=== PATIENT | female | born 1985 | race Caucasian/White ===

== ENCOUNTER 2018-07-29 15:06 | Inpatient (IN) ==
[2018-07-29] MEDS ORDERED: NICOTINE GUM BUCCAL PRN (18:21)
[2018-07-29] MEDS ORDERED: DESYREL PO PRN (18:21)
[2018-07-29] MEDS ORDERED: IMODIUM PO PRN ×2 (18:21)
[2018-07-29] MEDS ORDERED: ZOFRAN IV PRN (18:21)
[2018-07-29] MEDS ORDERED: D5W 1,000 ML IV PRN (18:21)
[2018-07-29] MEDS ORDERED: ZOFRAN ODT PO PRN (18:21)
[2018-07-29] MEDS ORDERED: SEROQUEL PO PRN (18:21)
[2018-07-29] MEDS ORDERED: PHENOBARBITAL IV PRN (18:21)
[2018-07-29] MEDS ORDERED: MOTRIN PO PRN (18:21)
[2018-07-29] MEDS ORDERED: DULCOLAX PR PRN (18:21)
[2018-07-29] MEDS ORDERED: TUBERSOL ID ONE (18:21)
[2018-07-29] MEDS ORDERED: MAALOX PLUS LIQUID PO PRN (18:21)
[2018-07-29] MEDS ORDERED: SENOKOT PO PRN (18:21)
[2018-07-29] MEDS ORDERED: ZOFRAN IM PRN (18:21)
[2018-07-29 18:31] LABS: URINE SOURCE CLEAN CATCH
[2018-07-29 18:40] LABS: BILIRUBIN URINE NEGATIVE (NEGATIVE); BLOOD URINE NEGATIVE (NEGATIVE); CLARITY CLEAR (CLEAR); COLOR YELLOW; GLUCOSE URINE NEGATIVE (NEGATIVE); KETONE URINE TRACE mg/dL (NEGATIVE); SP GRAVITY URINE 1.025
[2018-07-29 18:40] LABS: HEMATOCRIT 38.5 % (37.0-47.0); HEMOGLOBIN 13.6 g/dL (12.0-16.0); MCH 30.4 PG (27-31); MCHC 35.3 g/dL (33-37); MCV 85.9 FL (81-99); MPV 10.1 FL (7.4-10.4); RBC 4.48 XMIL (4.2-5.4); RDW 12.5 % (11.5-14.5); WBC 10.44 X1000 (4.8-10.8)
[2018-07-29 18:41] LABS: LEUKOCYTES URINE TRACE (NEGATIVE); NITRITE URINE NEGATIVE (NEGATIVE); PROTEIN URINE TRACE mg/dL (NEGATIVE); UROBILINOGEN URINE NORMAL
[2018-07-29 18:44] LABS: URINE BACTERIA 1+ /HFP; URINE EPITHELIAL CELLS <10 /HPF (<10); URINE WBC <10 /HPF (<10)
[2018-07-29 18:45] LABS: URINE CAST NONE SEEN /LPF; URINE CRYSTAL URIC ACID PRESENT /HPF; URINE YEAST NONE SEEN /HPF
[2018-07-29 18:45] LABS: UR AMPHETAMINES QUAL PRESUMPTIVE POSITIVE (NONE DETECT); UR CANNABINOIDS QUAL PRESUMPTIVE POSITIVE (NONE DETECT); UR METHAMPHETAMINE QUAL PRESUMPTIVE POSITIVE (NONE DETECT); UR OPIATES QUAL PRESUMPTIVE POSITIVE (NONE DETECT)
[2018-07-29 18:46] LABS: UR BARBITUATES QUAL NONE DETECTED (NONE DETECT); UR BENZODIAZEPIN QUAL NONE DETECTED (NONE DETECT); UR COCAINE QUAL NONE DETECTED (NONE DETECT); UR METHADONE QUAL NONE DETECTED (NONE DETECT); UR OXYCODONE QUAL NONE DETECTED (NONE DETECT); UR PCP QUAL NONE DETECTED (NONE DETECT); UR PROPOXYPHENE QUAL NONE DETECTED (NONE DETECT); UR TCA QUAL NONE DETECTED (NONE DETECT)
[2018-07-29 18:54] LABS: PROTIME 13.7 Seconds (11.0-16.0)
[2018-07-29 19:09] LABS: AGAP 13; ALBUMIN 4.6 g/dL (3.5-5.0); ALKALINE PHOSPHATASE 72 U/L (32-104); AMYLASE 27 U/L (20-200); BUN 18 mg/dL (8-22); CALCIUM 9.2 mg/dL (8.8-10.2); CHLORIDE 102 mmol/L (98-107); COSMO 279; CREATININE 0.6 mg/dL (0.5-0.9); ESTIMATED GFR > 60; GLUCOSE 88 mg/dL (70-104); GOT 68 U/L (10-30); GPT 58 U/L (10-36); LIPASE 15 U/L (13-60); POTASSIUM 3.2 mmol/L (3.5-5.1); SODIUM 139 mmol/L (136-145); TCO2 25 mmol/L (25-35); TOTAL PROTEIN 7.6 g/dL (6.3-8.3)
[2018-07-29] MEDS ORDERED: ATARAX PO PRN (19:27)
[2018-07-29] MEDS ORDERED: BENTYL PO PRN (19:27)
[2018-07-29] MEDS ORDERED: SALINE LOCK IV FLUID XX ONE (19:27)
[2018-07-29] MEDS: LIBRIUM PO SCH (19:56)
[2018-07-29] MEDS: ROBAXIN PO PRN (19:56)
[2018-07-29] MEDS ORDERED: M.V.I.-12 10 ML, FOLIC ACID 1 MG, MAGNESIUM SULFATE 1 GM, THIAMINE 100 MG in NS 1,000 ML IV ONE (20:00)
[2018-07-29] MEDS: NICODERM PATCH TD PRN (20:17)
[2018-07-30] MEDS: LIBRIUM PO SCH ×4 (01:39→20:32)
[2018-07-30] MEDS: PROTONIX PO SCH (06:47)
[2018-07-30] MEDS: VITAMIN B-1 PO SCH (08:15)
[2018-07-30] MEDS: THERA M PLUS PO SCH (08:15)
[2018-07-30] MEDS: FOLIC ACID PO SCH (08:15)
--- NOTE | 2018-07-30 12:45 | Diag Imaging Result Doc PS360 ---
ELBOW COMPLETE LEFT - 07/30/2018 INDICATION: fall TECHNIQUE: Three views COMPARISON: None FINDINGS: Bones are intact and normally aligned. Joint spaces and soft tissues are clear. IMPRESSION: Negative exam. Electronically signed by Av Blackman 07/30/2018 12:43 PM
--- NOTE | 2018-07-30 12:46 | Diag Imaging Result Doc PS360 ---
KNEE 3 VIEWS RIGHT - 07/30/2018 INDICATION: fall TECHNIQUE: Three views COMPARISON: None FINDINGS: There is mild degenerative spurring of all three joint compartment of the knee. No fracture or dislocation. No joint effusion. IMPRESSION: Mild osteoarthritis but no acute injury. Electronically signed by Av Blackman 07/30/2018 12:44 PM
[2018-07-30] MEDS: ROBAXIN PO PRN (13:58)
[2018-07-30] MEDS: TYLENOL PO PRN ×2 (13:58→20:37)
[2018-07-31] MEDS: LIBRIUM PO SCH ×2 (01:27→07:51)
[2018-07-31] MEDS: PROTONIX PO SCH (06:49)
[2018-07-31 07:37] VITALS: BP 118/75
[2018-07-31] MEDS: FOLIC ACID PO SCH (07:50)
[2018-07-31] MEDS: NICODERM PATCH TD PRN (07:51)
[2018-07-31] MEDS: VITAMIN B-1 PO SCH (07:51)
[2018-07-31] MEDS: THERA M PLUS PO SCH (07:51)
--- NOTE | 2018-07-31 09:05 | PROGRESS NOTE ---
DATE: 07/31/2018 SUBJECTIVE: Patient notes that she is feeling a little bit better. Denies any fevers or chills. OBJECTIVE: Vital signs: Reviewed and stable. General: She is awake, alert. She is in no current respiratory distress. HEENT: Normocephalic. Neck: Supple. CV: Regular rate. Chest: Clear. Abdomen: Soft. Extremities: Moves all extremities. ASSESSMENT: 1. Nausea and vomiting. 2. Abdominal pain. 3. Myalgias. 4. Paresthesias. 5. Paroxysmal sweating. 6. Substance abuse, withdrawal and stabilization. PLAN: Continue to wean. Continue counseling. Further orders [*]. cc: Jong Troy MD
[2018-07-31] MEDS ORDERED: LIBRIUM PO SCH (13:00)
--- NOTE | 2018-07-31 23:05 | HISTORY AND PHYSICAL ---
CHIEF COMPLAINT: Nausea, vomiting. HISTORY OF PRESENT ILLNESS: Patient is a 32-year-old female who presented [facility] secondary to nausea, vomiting, abdominal pain, myalgias, and paresthesias. SOCIAL HISTORY: Patient is single. She is unemployed. Lives at home in [place]. PAST MEDICAL HISTORY: Bipolar, ADHD, chronic anxiety, depression, frequent urinary tract infections, history of blackouts that are substance abuse related, history of hypertension although not on current medications. MEDICATIONS: None. ALLERGIES: No known drug allergies. REVIEW OF SYSTEMS: CINA score is 21 secondary to nausea, vomiting, abdominal pain crampy at times, diarrhea. No hematochezia, melena, hematemesis. Frequent hot and cold temperature changes, frequent cold chills, frequent episodes of sweating, skin crawling, runny nose, watery eyes, tremors. Denies any chest pain, palpitations. Denies any fevers. Denies dysuria, urinary frequency, urgency, hesitancy, polyuria or polydipsia. Denies skin rashes, weight loss or weight gain. SUBSTANCE ABUSE HISTORY: The patient has created legal, social, financial and work problems due to continued substance abuse. [facility] in [facility] and [facility] in 2016. She has been in [facility], [place], and [place]. She has been to [facility] and a recovery center in [place] call [facility]. Unfortunately, she has not remained sober after any of these steps. The patient started drinking at 12, currently drinks a 5th every 4 or 5 days. Started marijuana, smokes daily, at age 12. Started depressants at age 15, currently takes 1 to 2 Xanax a day. Currently, she is taking opiates every day and started at age 18. FAMILY HISTORY: Noncontributory. PHYSICAL EXAMINATION: VITAL SIGNS: Reviewed. GENERAL: Patient is awake, alert. She is currently in no respiratory distress. HEENT: Normocephalic, atraumatic. SRIKANTH. NECK: Supple. No JVD. CARDIOVASCULAR: Regular rate. No murmurs. CHEST: Clear and nonlabored. ABDOMEN: Soft, nondistended, nontender. EXTREMITIES: Moves all extremities. NEUROLOGIC: No changes. ASSESSMENT: 1. Nausea, vomiting. 2. Abdominal pain. 3. Myalgias. 4. Paresthesias. 5. Paroxysmal sweating. 6. Opiate abuse, withdrawal and stabilization. 7. Dysuria. PLAN: We will admit patient to the hospital, place her on Librium taper. Continue to follow. Continue counseling. Further orders as needed. cc: Jong Troy MD
--- NOTE | 2018-08-01 05:20 | DISCHARGE SUMMARY ---
ADMISSION DATE: 07/29/2018 DISCHARGE DATE: 07/31/2018 DISCHARGE DIAGNOSES: 1. Nausea, vomiting. 2. Abdominal pain. 3. Myalgias. 4. Paresthesias. 5. Paroxysmal sweating. 6. Polysubstance use and abuse. 7. Bipolar which is still somewhat problematic. CONSULTATIONS: None. PROCEDURES: None. BRIEF HOSPITAL COURSE: The patient is a 32-year-old female who presented to the hospital with polysubstance abuse and withdrawal. We placed her on Librium taper, began counseling, continued to taper throughout the hospital stay. On discharge, she is in no further distress. Her withdrawal symptoms have resolved. She is awake, alert, and oriented. DISPOSITION: Patient will be discharged home. Discussed with her that she needs outpatient life counseling as well as drug counseling. She needs to follow up outpatient with treatment facility of choice. Greater than 30 minutes was spent in total care. She will be discharged with 3 Librium tablets to be taken twice a day tomorrow and then once a day afterwards. cc: Jong Troy MD
== END 2018-07-31 11:10 | disposition home or self-care (01) | DRG 897 ==
LOC: P.DIRADM 16:17 → P.MEDSURG 16:32
PROVIDERS: ADMIT Family Medicine; ATTEND Family Medicine
CPT/HCPCS: 73080; 73562; 80053; 80104; 80301; 80305; 80307; 80320; 81001; 82055; 82150; 83690; 84703; 85027; 85610; 86580; A9270; G0431; G0434; G0477; G0480; G6040; J3411; J3475; J7030